=== PATIENT | male | born 1995 | race Caucasian/White ===

== ENCOUNTER → 2020-07-22 | Outpatient (CLI) | payer OTHER, SELFPAY ==
[2020-07-22 08:53] VITALS: BMI 25.2
== END | disposition home or self-care (01) ==
LOC: LABSPEC 10:25
PROVIDERS: Referring Provider Physician Assistant Surgical; Visit Provider Physician Assistant Surgical
DX: Z02.1 Encounter for pre-employment examination (principal)
CPT/HCPCS: 87635; U0003